=== PATIENT | female | born 1960 | race Caucasian/White ===

== ENCOUNTER 2018-12-19 00:12 | Inpatient (IN) | payer BC ==
[2018-12-19 00:47] VITALS: BMI 35.5
[2018-12-19] MEDS ORDERED: Ondansetron ODT 4 MG TAB PO PRN (05:23)
[2018-12-19] MEDS ORDERED: Ondansetron PF 4 MG/2 ML Vial IVP PRN (05:23)
[2018-12-19] MEDS ORDERED: Potassium Chloride 20 MEQ TAB PO SCH (05:30)
[2018-12-19] MEDS: Sodium Chloride 0.9% 1,000 ML IV SCH ×2 (05:58→17:19)
[2018-12-19] MEDS: metroNIDAZOLE 500 MG in Premix Bag 1 BAG IVPB SCH ×3 (05:59→21:51)
--- NOTE | 2018-12-19 06:17 | HP ---
PRIMARY CARE PROVIDER: [facility]. CHIEF COMPLAINT: Abdominal pain and diarrhea. HISTORY OF PRESENT ILLNESS: This is a 58-year-old female, who presents to [facility] Emergency Department complaining of less than 1-day history of loose stool with bloody diarrhea. The patient her last meal was breakfast in the security developer hours of 12/18/2018, developing abdominal cramping pain and a sudden urge to defecate. The patient states she had difficulty making it to the restroom and noted profuse diarrhea with blood in the toilet. The patient noted the blood was bright red and felt like she was going to pass out. The patient denies taking anticoagulants or chronic steroids and NSAIDs. 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 The patient does states that 2 of her pets had diarrhea recently, but she denies any sick contacts or family members with similar symptoms. The patient denied any documented fever and states she has had no prior endoscopy. The patient denied any specific change to her regular dietary intake or recent antibiotic exposure. The patient denied taking any alleviating medications or pyfj-lzh-ieyeghd remedies. In the emergency room, the patient underwent general evaluation with screening metabolic survey showing leukocytosis with left shift. The patient received intravenous normal saline in addition to Flagyl 500 mg and Protonix 40 mg IV push, PAST MEDICAL HISTORY: 1. Clostridium difficile colitis after Levaquin therapy. 2. Seasonal allergies. 3. Hypothyroidism. 4. Hypertension. PAST SURGICAL HISTORY: 1. Status post ureteral repair at . 2. Status post tonsillectomy. CURRENT MEDICATIONS: 1. Synthroid 112 mcg p.o. daily. 2. Lisinopril 10 mg p.o. daily. 3. Claritin 10 mg p.o. daily. ALLERGIES: PENICILLIN, ERYTHROMYCIN. FAMILY HISTORY: No inheritable disease per patient report. SOCIAL HISTORY: The patient resides in [place], [place]. 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 Remote tobacco use, none currently. No alcohol or illicit drug use. Functional of all activities of daily living. REVIEW OF SYSTEMS: CONSTITUTIONAL: Negative for weight loss or gain, ability to conduct usual activities. SKIN: Negative for rash, itching. EYES: Negative for double vision, pain. ENT/MOUTH: Negative for nose bleeding, neck stiffness, pain, tenderness. CARDIOVASCULAR: Negative for palpitations, dyspnea on exertion, orthopnea. RESPIRATORY: Negative for shortness of breath, wheezing, cough, hemoptysis, fever or night sweats. GASTROINTESTINAL: Negative for poor appetite, abdominal pain, heartburn, nausea, vomiting, constipation, or diarrhea. GENITOURINARY: Negative for urgency, frequency, dysuria, nocturia. MUSCULOSKELETAL: Negative for pain, swelling. NEUROLOGIC/PSYCHIATRIC: Negative for anxiety, depression. ALLERGY/IMMUNOLOGIC: Negative for skin rash, bleeding tendency. Review of systems otherwise negative except as stated per HPI. PHYSICAL EXAMINATION: VITAL SIGNS: On admission, blood pressure 103/56, pulse is 83, respiratory rate 19, temperature 98 degrees Fahrenheit, and O2 saturation 99% on room air. GENERAL APPEARANCE: This is a 58-year-old female, alert and oriented x3, pleasant, conversant, in no acute distress. HEENT: Pupils are equal, round, reactive to light and accommodation. Extraocular muscles are intact. No scleral icterus. No conjunctival injection. Nares patent. OP is clear. Teeth in good repair. NECK: Supple. No cervical adenopathy. No thyromegaly. No carotid bruits. No JVD appreciated. Cervical spine with full active and passive range of motion. No meningeal signs noted. CHEST: Lungs are clear to auscultation bilaterally. CARDIOVASCULAR: S1-S2 without noted murmur, rub, or gallop. ABDOMEN: Rounded, soft with mild tenderness to palpation in the left lower quadrant. No rebound or guarding appreciated. Bowel sounds are positive in all 4 quadrants. EXTREMITIES: Warm and dry with fair turgor. No clubbing, cyanosis, or asymmetric edema appreciated. Pulses palpable distally at the dorsalis pedis, posterior tibial, and popliteal arteries bilaterally. Capillary refill less than 2 seconds. NEUROLOGIC: Cranial nerves 2 through 12 are grossly intact. No focal or lateralizing signs appreciated. PERTINENT LAB AND X-RAY FINDINGS: Sodium 139, potassium 3.4, chloride 106, CO2 of 19, BUN 20, creatinine 1.24, estimated GFR of 44, glucose 110, calcium 9.6. LFTs within normal limits. Lipase 18. CBC showed a white blood cell count of 16.0, hemoglobin 14, hematocrit 42, platelet count 213, with 80% neutrophilia. ASSESSMENT/PLAN: 1. Acute colitis, presumed infectious. The patient will be admitted to the medical floor. We will continue IV antibiotic therapy with ciprofloxacin 400 mg IV q.12 hours with additional Flagyl 500 mg IV q.8 hours. Check stool for C. difficile, Campylobacter, Shigella, Salmonella, and Clostridium difficile. Continue intravenous normal saline at 100 mL/h. Clear liquids as tolerated. Consult GI Service in the a.m. for any further recommendations. 2. Acute kidney injury. We will continue intravenous normal saline as outlined previously. Avoid nephrotoxic agents and limit contrast exposure. Repeat creatinine in the a.m. 3. Gastrointestinal bleeding secondary to #1. We will continue to monitor for recurrence of gastrointestinal bleed. Avoid all NSAIDs and anticoagulation. See #1 for management. 4. Hypertension. Continue serial blood pressure monitoring. Hold lisinopril due to acute kidney injury. 5. Prophylaxis. SCDs while in bed. Pepcid 20 mg IV q.12 hours. CODE STATUS: Full. Surrogate medical decision maker is Evelia Bean. Job ID: [id number]
[2018-12-19 07:02] LABS: Mean Corpuscular HGB CONC 31.9 g/dL (32.0-36.0); Mean Corpuscular Hemoglobin 27.9 pg (27.0-31.0); Mean Corpuscular Volume 87.5 fL (78.0-98.0); Mean Platelet Volume 8.7 fL (7.4-10.4); Platelet Count 213 thou/uL (130-400); RBC Distribution Width 12.3 % (11.5-14.5); Red Blood Cell (RBC) Count 4.65 mill/uL (4.20-5.40); White Blood Cell (WBC) Count 15.2 thou/uL (4.8-10.8)
[2018-12-19 07:07] LABS: ALT (SGPT) 18 U/L (8-55); AST (SGOT) 21 U/L (5-34); Albumin 3.8 g/dL (3.5-5.0); Alkaline Phosphatase 85 U/L (40-150); Anion Gap 9 mmol/L (10-20); BUN (Urea Nitrogen) 14 mg/dL (9.8-20.1); Bilirubin, Total 0.4 mg/dL (0.2-1.2); Calc. Creatinine Clearance 113 mL/min (70-130); Calcium 9.2 mg/dL (7.8-10.44); Carbon Dioxide 24 mmol/L (22-29); Chloride 109 mmol/L (98-107); Estimated GFR-MDRD 71; Globulin 2.2 g/dL (2.4-3.5); Glucose 123 mg/dL (70-105); Potassium 3.7 mmol/L (3.5-5.1); Sodium 138 mmol/L (136-145)
[2018-12-19 07:45] LABS: Band 5 % (5-11); Lymphocytes 7 % (21-51); MDiff Complete? YES; Monocytes 8 % (0-10); Neutrophil 79 % (42-75); RBC Morphology Normal; Reactive Lymphocytes 1 % (0-10)
[2018-12-19] MEDS: Potassium Chloride 20 MEQ TAB PO SCH ×2 (08:50→17:19)
[2018-12-19] MEDS: Saccharomyces boulardii 250 MG CAP PO SCH (08:50)
[2018-12-19] MEDS: Levothyroxine Sodium 112 MCG TAB PO SCH (08:50)
[2018-12-19] MEDS: Famotidine/PF 20 mg/2ml Vial SLOW IVP SCH ×2 (08:50→21:48)
[2018-12-19] MEDS: Acetaminophen 500 MG TAB PO PRN ×2 (11:54→19:41)
--- NOTE | 2018-12-19 17:12 | PDOC.PN ---
- Subjective Encounter Start Date: 12/19/18 Encounter Start Time: 09:20 Pt seen for followup re: colitis. Feels better. Diarrhea improving. - Objective Resuscitation Status - Order Detail: 12/19/18 05:15 Resuscitation Status Routine Resuscitation Status: FULL: Full Resuscitation MAR Reviewed: Yes Vital Signs & Weight: Vital Signs (12 hours) Temp Pulse Resp BP Pulse Ox 12/19/18 15:36 98.5 F 62 18 123/73 98 12/19/18 11:36 97.8 F 76 15 140/80 99 12/19/18 08:00 98.0 F 80 15 126/74 100 Weight Weight 213 lb 6.4 oz I&O: 12/18/18 12/19/18 12/20/18 06:59 06:59 06:59 Intake Total 640 Balance 640 Result Diagrams: 12/19/18 06:21 12/19/18 06:20 Phys Exam - Physical Examination Constitutional: NAD HEENT: moist MMs, sclera anicteric, oral pharynx no lesions, 2+ tonsils Neck: no nodes, no JVD, supple, full ROM Respiratory: clear to auscultation bilateral Cardiovascular: RRR, no rub S1, S2 Gastrointestinal: soft, non-tender, no distention, positive bowel sounds Neurological: moves all 4 limbs Psychiatric: normal affect, A&O x 3 Dx/Plan (1) Acute colitis Code(s): K52.9 - NONINFECTIVE GASTROENTERITIS AND COLITIS, UNSPECIFIED Status : Acute Comment: continue cipro and flagyl. C. diff -ve. (2) Hypothyroidism Code(s): E03.9 - HYPOTHYROIDISM, UNSPECIFIED Status: Chronic Comment: continue synthroid (3) HTN (hypertension) Code(s): I10 - ESSENTIAL (PRIMARY) HYPERTENSION Status: Chronic Comment: controlled (4) VOLODYMYR (acute kidney injury) Code(s): N17.9 - ACUTE KIDNEY FAILURE, UNSPECIFIED Status: Resolved - Plan * . Review of Systems - Review of Systems Constitutional: negative: fever, chills, sweats, weakness, malaise Respiratory: negative: Cough, Shortness of Breath, SOB with Excertion, Pleuritic Pain, Wheezing Cardiovascular: negative: chest pain, palpitations, orthopnea, paroxysmal nocturnal dyspnea, edema, light headedness Gastrointestinal: Diarrhea, Hematochezia. negative: Nausea, Vomiting, Abdominal Pain, Constipation, Melena Genitourinary: negative: Dysuria, Frequency, Incontinence, Hematuria, Retention - Medications/Allergies Allergies/Adverse Reactions: Allergies Allergy/AdvReac Type Severity Reaction Status Date / Time levofloxacin [From Levaquin] Allergy Intermediate Diarrhea Verified 12/19/18 00: 27 erythromycin base Allergy Verified 12/19/18 00:27 Penicillins Allergy Verified 12/19/18 00:27 Medications: Current Medications Acetaminophen (Tylenol) 1,000 mg PO Q6H PRN PRN Reason: Mild Pain (1-3) Last Admin: 12/19/18 11:54 Dose: 1,000 mg Famotidine (Pepcid) 20 mg SLOW IVP Q12HR [facility] Last Admin: 12/19/18 08:50 Dose: 20 mg Ciprofloxacin/Dextrose 400 mg/ (Device) 200 mls @ 200 mls/hr IVPB 0600,1800 [facility] Last Admin: 12/19/18 05:59 Dose: 200 mls Metronidazole 500 mg/ Device 100 mls @ 100 mls/hr IVPB Q8HR [facility] Last Admin: 12/19/18 14:17 Dose: 100 mls Sodium Chloride (Normal Saline 0.9%) 1,000 mls @ 100 mls/hr IV .Q10H [facility] Last Admin: 12/19/18 05:58 Dose: 1,000 mls Levothyroxine Sodium (Synthroid) 112 mcg PO QAM [facility] Last Admin: 12/19/18 08:50 Dose: 112 mcg Lisinopril (Zestril) 10 mg PO QPM [facility] Ondansetron HCl (Zofran Odt) 4 mg PO Q6H PRN PRN Reason: Nausea/Vomiting Ondansetron HCl (Zofran) 4 mg IVP Q6H PRN PRN Reason: Nausea/Vomiting Potassium Chloride (K-Dur) 40 meq PO BID-[facility] Last Admin: 12/19/18 08:50 Dose: 40 meq Saccharomyces Boulardii (Florastor) 250 mg PO DAILY [facility] Last Admin: 12/19/18 08:50 Dose: 250 mg
[2018-12-19] MEDS ORDERED: Lisinopril 10 MG TAB PO SCH (21:00)
--- NOTE | 2018-12-20 00:01 | CON ---
DATE OF CONSULTATION: 12/19/2018 CHIEF COMPLAINT: Bloody diarrhea. HISTORY OF PRESENT ILLNESS: Ms. 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 She drove over to [place] for class yesterday morning and then drove to [place]. She got to the unit in [place]. She felt sudden urge to have a bowel movement around 12:30 p.m. She admitted into the restroom and then had multiple brown liquidy stools, felt very lightheaded and dizzy and presyncopal with nausea. She banged on the door and got the staff to help her and they rolled her down to the [facility]. While she was on the gurney on the way to the [facility], she lost control of her stools and multiple large volume liquidy bowel movements with loss of continence. She was then transferred to the hospital in [place] and was then transferred here for further care. She had after 5 or 6 liquidy brown bowel movements, then started passing liquidy red bloody bowel movements. Through the night last night, she had liquidy red bloody bowel movement about every 30 minutes, and then this morning she had progressively smaller volume bowel movements, and this afternoon she is doing much better. She still gets some intermittent cramping of lower abdominal pain that last for 30 seconds or so and then eases away. She did have C diff infection around 20 years ago after a course of levofloxacin. She has had no recurrent C diff since then. No obvious food exposures or sick contacts. She has been working in the alf units which are not air conditioned. However , the classrooms are air conditioned. She has been drinking water, but also taking lisinopril in the evenings. Her blood pressure has not been running low as far she is aware. PAST MEDICAL HISTORY: C diff colitis, hypothyroidism, hypertension. PAST SURGICAL HISTORY: Ureteral repair as a baby and tonsillectomy. FAMILY HISTORY: Negative for GI malignancies. SOCIAL HISTORY: Rare alcohol. She quit smoking 11 years ago. No drugs. ALLERGIES: PENICILLIN AND ERYTHROMYCIN. MEDICATIONS: Prior to admission, 1. Lisinopril. 2. Levothyroxine. Also on her home medication list in the computer is listed loratadine with pseudoephedrine. She did not tell me about this one to confirm. Here in the hospital, she is on, 1. Ciprofloxacin. 2. Metronidazole. 3. Lisinopril. 4. Levothyroxine. 5. Pepcid. 6. Saccharomyces. REVIEW OF SYSTEMS: Negative x10 systems reviewed except as stated in history of present illness. PHYSICAL EXAMINATION: VITAL SIGNS: Temperature 98.5, pulse 62, blood pressure 123/73. GENERAL: She is in no acute distress. Alert and oriented x3. HEENT: Eyes have no scleral icterus. Oropharynx is clear without lesions. No cervical or supraclavicular lymphadenopathy. LUNGS: Clear to auscultation bilaterally. HEART: Regular rate and rhythm without murmur. ABDOMEN: Soft. Minimal tenderness in the lower abdomen without guarding. Bowel sounds are present. EXTREMITIES: No lower extremity edema. LABORATORY DATA: White blood cell count 15.2, hemoglobin 13.0, platelets 213. INR 0.83 today, down from 1.24 yesterday. Bilirubin 0.4, AST 21, ALT 18, alkaline phosphatase 85, albumin 3.8, lipase 18. IMPRESSION: 1. Bloody diarrhea. This started as liquidy brown watery diarrhea and then progressed to bloody diarrhea. Most likely this is an acute infectious gastroenteritis. Ischemic colitis could also cause the same picture. She is not focally tender now and there should not be any reason to obtain a CT scan currently; however, she starts developing worsening abdominal pain again, then a CT can be performed. Her symptoms are already improving. Her diarrhea is improving. Still having some cramping. She has received several L of fluid now and antibiotics and she is doing better overall. 2. Acute kidney disease, improved. RECOMMENDATIONS: 1. Continue supportive care with IV fluids and antibiotics. If she continues to improve, then advance her diet and discharge home when she is tolerating oral diet. 2. Continue antibiotics for 3 to 5 days. 3. If her pain markedly worsens again, then request a CT of the abdomen and pelvis. 4. She is advised to follow up in GI Clinic in 1 month and we will work on scheduling an average risk screening colonoscopy for at that time. If she fails to continue to clinically improve in the meantime, then we can perform a colonoscopy sooner if it becomes indicated. 5. So far, her C diff, shiga toxin, and Campylobacter antigen are negative. We will await the final culture. The C diff antigen and toxin are negative. Job ID: [id number] MTDD
[2018-12-20] MEDS: Acetaminophen 500 MG TAB PO PRN (02:04)
[2018-12-20] MEDS: Sodium Chloride 0.9% 1,000 ML IV SCH ×2 (02:05→12:00)
[2018-12-20 05:09] LABS: Band 3 % (5-11); Hemoglobin 12.4 g/dL (12.0-16.0); Lymphocytes 16 % (21-51); MDiff Complete? YES; Mean Corpuscular HGB CONC 32.2 g/dL (32.0-36.0); Mean Corpuscular Hemoglobin 28.4 pg (27.0-31.0); Mean Corpuscular Volume 88.2 fL (78.0-98.0); Monocytes 6 % (0-10); Neutrophil 75 % (42-75); Platelet Count 187 thou/uL (130-400); RBC Distribution Width 12.3 % (11.5-14.5); Red Blood Cell (RBC) Count 4.37 mill/uL (4.20-5.40)
[2018-12-20 05:27] LABS: ALT (SGPT) 14 U/L (8-55); AST (SGOT) 14 U/L (5-34); Albumin 3.4 g/dL (3.5-5.0); Alkaline Phosphatase 66 U/L (40-150); Anion Gap 9 mmol/L (10-20); BUN (Urea Nitrogen) 7 mg/dL (9.8-20.1); Bilirubin, Total 0.3 mg/dL (0.2-1.2); Calc. Creatinine Clearance 120 mL/min (70-130); Calcium 8.8 mg/dL (7.8-10.44); Carbon Dioxide 25 mmol/L (22-29); Chloride 110 mmol/L (98-107); Estimated GFR-MDRD 76; Glucose 95 mg/dL (70-105); Potassium 4.2 mmol/L (3.5-5.1); Protein, Total 5.4 g/dL (6.0-8.3); Sodium 140 mmol/L (136-145)
[2018-12-20] MEDS: metroNIDAZOLE 500 MG in Premix Bag 1 BAG IVPB SCH ×2 (05:30→16:53)
[2018-12-20] MEDS: Famotidine/PF 20 mg/2ml Vial SLOW IVP SCH (08:27)
[2018-12-20] MEDS: Potassium Chloride 20 MEQ TAB PO SCH (08:27)
[2018-12-20] MEDS: Saccharomyces boulardii 250 MG CAP PO SCH (08:27)
[2018-12-20] MEDS: Levothyroxine Sodium 112 MCG TAB PO SCH (08:27)
--- NOTE | 2018-12-20 12:59 | PRG ---
DATE OF SERVICE: 12/20/2018 SUBJECTIVE: Ms. Aviles is feeling better. Her stool frequency has decreased significantly. She is having much less bleeding. She has some aching left lower quadrant pain, but overall is feeling much better. She is tolerating her diet so far. OBJECTIVE: VITAL SIGNS: Temperature 97.8, pulse 75, blood pressure 127/79. GENERAL: She is in no acute distress. Alert and oriented x3. LUNGS: Clear to auscultation bilaterally. HEART: Regular rate and rhythm without murmur. ABDOMEN: Soft, nondistended. Bowel sounds are present. She does have some tenderness in the left lower quadrant to palpation without guarding. EXTREMITIES: No lower extremity edema. LABORATORY DATA: White blood cell count 11.0 down from 15 yesterday, hemoglobin 12.4, platelets 187. Creatinine 0.78, albumin 3.4. IMPRESSION: Bloody diarrhea. Ischemic colitis versus infectious colitis. She is clinically improving. Left-sided tenderness may be more suggestive of ischemic colitis on the left. Stool studies are negative so far. Preliminary culture is negative. RECOMMENDATIONS: 1. Advance her diet. 2. Await final stool culture. 3. Follow up in GI clinic in 4 to 6 weeks to perform colonoscopy for screening and rule out any other inflammatory process chronically. 4. Possible discharge home this evening versus tomorrow depending on how she does with advancing her diet. Job ID: [id number]
[2018-12-20 16:50] VITALS: BP 145/82; TEMP 98.1
--- NOTE | 2018-12-20 22:58 | DIS ---
DATE OF ADMISSION: 12/19/2018 DATE OF DISCHARGE: 12/20/2018 PRIMARY CARE PROVIDER: Dr. Dash Cancino in [place], [place]. DISCHARGE DIAGNOSES: 1. Acute colitis. 2. Most likely acute colitis secondary to infectious etiology. 3. Hypokalemia. CONSULTATIONS DURING THIS HOSPITALIZATION: Gastroenterology, Dr. Go. CONDITION OF PATIENT ON THE DAY OF DISCHARGE: Stable. I assessed Ms. Aviles on the day of discharge. She denies any chest pain or shortness of breath. Abdominal pain is better. There is no blood in stools. Vital signs are stable. S1 and S2 are heard, regular. Lungs are clear to auscultation bilaterally. DISCHARGE MEDICATIONS: 1. Synthroid 112 mcg daily. 2. Lisinopril 10 mg daily. 3. Claritin p.r.n. 4. Cipro 500 mg 2 times a day, 7 more doses. 5. Metronidazole 500 mg 3 times a day, 11 more doses. HOSPITAL COURSE: Ms. Aviles is a pleasant 58-year-old lady, who was admitted to [facility] on December 19, 2018, for acute colitis. Please refer to Dr. Figueroa's history and physical note dated December 19, 2018, for further details. She improved with antibiotics. Stool Clostridium difficile test was negative. Campylobacter antigen test was negative. Shiga toxins 1 and 2 tests were negative on the stool sample. She has been cleared for discharge by Gastroenterology Service. She will need to follow up with them in 4-6 weeks' time for colonoscopy to rule out ischemic colitis. She is also advised to follow up with her primary care provider for final stool culture report. On the day of discharge, she has sodium of 140, potassium 4.2, creatinine 0.78. White count 82346, hemoglobin 12.4, and platelet count 187,000. Many thanks for allowing me to participate in your patient's care. Please feel free to contact me with any questions or concerns. FOLLOW UP: With primary care provider in 3-5 days. DISCHARGE DESTINATION: Home. TIME SPENT: Total amount of time spent coordinating this discharge: 31 minutes. Job ID: [id number] MTDD
== END 2018-12-20 17:06 | disposition home or self-care (01) | DRG 392 ==
LOC: SURG B 00:12
PROVIDERS: ADMIT Family Medicine; ATTEND Family Medicine
DX: A09 Infectious gastroenteritis and colitis, unspecified (principal); N17.9 Acute kidney failure, unspecified; E03.9 Hypothyroidism, unspecified; I10 Essential (primary) hypertension; E87.6 Hypokalemia; Z90.89 Acquired absence of other organs; Z79.899 Other long term (current) drug therapy; Z88.0 Allergy status to penicillin; Z88.1 Allergy status to other antibiotic agents
CPT/HCPCS: 36415; 36416; 80053; 83630; 85007; 85027; 87045; 87046; 87324; 87449; 87899; J0744; S0028